=== PATIENT | male | born 1935 | race Caucasian/White ===

== ENCOUNTER 2022-01-05 08:07 | Inpatient (IN) | payer MEDICARE ==
[~2022-01-05] VITALS: Ht 175.3 cm; Wt 81.4 kg
[2022-01-05 10:39] VITALS: BP 177/67; PULSE 84; TEMP 98
[2022-01-05] MEDS ORDERED: ASPIRIN E.C. 8181 MG PO (10:53)
[2022-01-05] MEDS ORDERED: XANAX 0.5MG0.5 MG PO (10:54)
[2022-01-05] MEDS ORDERED: PLAVIX 75MG TAB75 MG PO (10:55)
[2022-01-05] MEDS ORDERED: COZAAR100 MG PO (10:55)
[2022-01-05] MEDS ORDERED: TENORMIN 2525 MG/TAB PO (10:56)
[2022-01-05] MEDS ORDERED: LASIX 40MG TABL40 MG PO (10:56)
[2022-01-05] MEDS ORDERED: ZOCOR 40MG40 MG PO (10:57)
[2022-01-05] MEDS ORDERED: LEVOXYL0.1 MG PO (10:58)
[2022-01-05 11:50] VITALS: BP 177/67; PULSE 84; TEMP 98
[2022-01-05 15:45] VITALS: BP 161/70; PULSE 80; TEMP 97.6
[2022-01-05 15:59] LABS: COLLECTION METHOD CLEAN CATCH
[2022-01-05 16:05] LABS: URINE APPEARANCE Clear (CLEAR/HAZY); URINE BLOOD Negative (NEGATIVE); URINE COLOR Yellow (YELLOW); URINE GLUCOSE Negative (NEGATIVE); URINE KETONE 2+ (NEGATIVE); URINE NITRATE Negative (NEGATIVE); URINE PROTEIN(semi-quant) Negative (NEGATIVE); URINE UROBILINOGEN 0.2 E.U/dL (0.2-1.0)
[2022-01-05 16:07] LABS: MUCOUS Present (NOT PRESENT); SQUAMOUS EPITHELIAL 0-2 /hpf (0-10); URINE BACTERIA None Seen /hpf (NONE SEEN); URINE RBC 0-2 /hpf (0-2)
[2022-01-05 19:56] VITALS: BP 137/57; PULSE 76; TEMP 97.8
[2022-01-05 21:36] VITALS: BP 150/65
[2022-01-05 23:56] VITALS: BP 132/56; PULSE 53; TEMP 97.8
[2022-01-06 04:17] VITALS: BP 103/73; PULSE 55; TEMP 97.5
[2022-01-06 06:24] LABS: BASO % 0.5 % (0.0-2.0); EOS # 0.3 K/mm3 (0.0-0.7); GRAN % 62.6 % (42.2-75.2); HEMATOCRIT 38.4 % (42.0-52.0); HEMOGLOBIN 12.4 g/dl (13.5-18.0); LYMPH # 1.5 K/mm3 (1.2-3.4); LYMPH % 19.3 % (20.0-51.0); MEAN CELL VOLUME 87 fl (80.0-100.0); MEAN CORPUSCULAR HEMOGLOBIN 28 pg (27-31); MEAN CORPUSCULAR HGB CONC 32 g/dl (33.0-37.0); MEAN PLATELET VOLUME 10.5 fl (7.4-10.4); MONO # 1.1 K/mm3 (0.1-0.6); MONO % 13.5 % (1.7-9.3); PLATELET COUNT 256 K/mm3 (130-400); REDCELL DISTRIBUTION WIDTH-CV 15.2 % (11.5-14.5)
[2022-01-06 06:45] LABS: CALCIUM 7.7 mg/dL (8.4-10.2); CREATININE, serum 1.59 mg/dL (0.72-1.25); MAGNESIUM 2.1 mg/dL (1.6-2.6)
[2022-01-06 08:00] VITALS: BP 149/60; PULSE 50; TEMP 96.9; TEMP 97.1
[2022-01-06 12:00] VITALS: BP 130/55; PULSE 54; TEMP 98.1
[2022-01-06 15:57] VITALS: BP 159/70; PULSE 58; TEMP 97.7
[2022-01-06 19:36] VITALS: BP 145/75; PULSE 74; TEMP 97.9
[2022-01-06 23:50] VITALS: BP 123/60; PULSE 62; TEMP 97.8
[2022-01-07 03:43] VITALS: BP 141/52; PULSE 53; TEMP 97.5
[2022-01-07 06:41] LABS: BASO % 0.4 % (0.0-2.0); EOS # 0.3 K/mm3 (0.0-0.7); EOS % 4.9 % (0.0-4.0); GRAN # 3.4 K/mm3 (1.4-6.5); GRAN % 61.1 % (42.2-75.2); HEMATOCRIT 39.5 % (42.0-52.0); HEMOGLOBIN 12.8 g/dl (13.5-18.0); LYMPH # 1.1 K/mm3 (1.2-3.4); LYMPH % 20.2 % (20.0-51.0); MEAN CELL VOLUME 89 fl (80.0-100.0); MEAN CORPUSCULAR HEMOGLOBIN 29 pg (27-31); MEAN CORPUSCULAR HGB CONC 32 g/dl (33.0-37.0); MEAN PLATELET VOLUME 10.5 fl (7.4-10.4); MONO # 0.7 K/mm3 (0.1-0.6); PLATELET COUNT 221 K/mm3 (130-400); RED BLOOD COUNT 4.46 M/mm3 (4.20-5.60); REDCELL DISTRIBUTION WIDTH-CV 15.2 % (11.5-14.5)
[2022-01-07 08:00] VITALS: BP 134/55; PULSE 60; TEMP 96.4
[2022-01-07] MEDS ORDERED: FLOMAX 0.40.4 MG/CAP PO (08:35)
[2022-01-07 12:15] VITALS: BP 150/53; PULSE 54; TEMP 97.6
== END 2022-01-07 14:00 | disposition home health service (06) | DRG 872 ==
LOC: MEDICAL 08:07 → SURG 11:54
PROVIDERS: ADMIT Internal Medicine
DX: A41.9 Sepsis, unspecified organism (principal); E87.2 Acidosis; N17.9 Acute kidney failure, unspecified; K56.609 Unspecified intestinal obstruction, unspecified as to partial versus complete obstruction; K42.9 Umbilical hernia without obstruction or gangrene; I11.0 Hypertensive heart disease with heart failure; I50.9 Heart failure, unspecified; I25.10 Atherosclerotic heart disease of native coronary artery without angina pectoris; J44.9 Chronic obstructive pulmonary disease, unspecified; E86.1 Hypovolemia; R73.9 Hyperglycemia, unspecified; E86.0 Dehydration; E03.9 Hypothyroidism, unspecified; R65.20 Severe sepsis without septic shock; F41.9 Anxiety disorder, unspecified; E78.00 Pure hypercholesterolemia, unspecified; Z90.49 Acquired absence of other specified parts of digestive tract; I25.2 Old myocardial infarction; Z79.01 Long term (current) use of anticoagulants; Z79.82 Long term (current) use of aspirin; Z79.890 Hormone replacement therapy; Z23 Encounter for immunization
CPT/HCPCS: J0696; J1644; J2270; J2543; J7030